=== PATIENT | female | born 1945 | race Caucasian/White ===

== ENCOUNTER 2020-09-04 11:40 | Observation (INO) | payer MEDICARE ==
[2020-09-04 12:14] LABS: #Monocytes 0.8 10x3/uL (0.0-1.1); #Neutrophils 3.6 10x3/uL (1.5-8.4); %Basophils 0.7 % (0.0-2.0); %Eosinophils 0.7 % (0.0-6.0); %Lymphocytes 23.4 % (18.0-47.0); %Monocytes 12.9 % (0.0-10.0); Hemoglobin 12.2 g/dL (12.0-15.5); Mean Corpuscular HGB CONC 33.2 g/dL (32.0-36.0); Mean Corpuscular Volume 93.4 fl (81.6-98.3); Mean Platelet Volume 9.4 fl (7.4-10.4); Platelet Count 158 10x3/uL (150-450); RBC Distribution Width 13.6 % (11.5-14.5); Red Blood Cell (RBC) Count 3.94 10x6/uL (3.90-5.03); White Blood Cell (WBC) Count 5.8 10x3/uL (3.5-10.5)
[2020-09-04] MEDS ORDERED: Albuterol Sulfate 2.5 mg/3 ml Neb ONE (12:23)
[2020-09-04 12:32] LABS: ALT (SGPT) 9 U/L (8-55); AST (SGOT) 17 U/L (5-34); Alkaline Phosphatase 85 U/L (40-110); Anion Gap 15 mmol/L (10-20); BUN (Urea Nitrogen) 13 mg/dL (9.8-20.1); Bilirubin, Total 1.1 mg/dL (0.2-1.2); Calc. Creatinine Clearance 0 mL/min (70-130); Calcium 8.6 mg/dL (7.8-10.44); Carbon Dioxide 18 mmol/L (23-31); Chloride 107 mmol/L (98-107); Globulin 2.7 g/dL (2.4-3.5); Glucose 119 mg/dL (83-110); Potassium 3.8 mmol/L (3.5-5.1); Protein, Total 6.7 g/dL (5.8-8.1); Sodium 136 mmol/L (136-145)
[2020-09-04] MEDS ORDERED: Aspirin Chewable 81 MG TAB ONE (14:15)
[2020-09-04] MEDS ORDERED: predniSONE 20 MG TAB ONE (14:16)
[2020-09-04] MEDS ORDERED: Loratadine 10 MG TAB PO PRN (15:24)
[2020-09-04] MEDS ORDERED: Ondansetron PF 4 MG/2 ML Vial IVP PRN (15:26)
[2020-09-04] MEDS ORDERED: Acetaminophen 325 MG TAB PO PRN (15:26)
[2020-09-04 15:30] LABS: Troponin I 0.018 ng/mL (< 0.028)
[2020-09-04] MEDS ORDERED: Ipratropium Bromide 2.5 ml Neb NEB PRN (15:30)
[2020-09-04 16:15] VITALS: BMI 25.4
[2020-09-04] MEDS ORDERED: Icosapent Ethyl [Vascepa] 1 GM Capsule PO SCH (17:00)
[2020-09-04] MEDS: Carvedilol 3.125 MG TAB PO SCH (17:10)
[2020-09-04] MEDS: methylPREDNISolone Sod Succ 40 MG VIAL IVP SCH ×2 (17:10→23:44)
[2020-09-04 18:39] LABS: Troponin I 0.018 ng/mL (< 0.028)
[2020-09-04] MEDS ORDERED: Ezetimibe 10 MG TAB PO SCH (21:00)
[2020-09-04] MEDS ORDERED: Rivaroxaban 10 MG TAB PO SCH (21:00)
[2020-09-04] MEDS ORDERED: Atorvastatin Calcium 40 MG TAB PO SCH (21:00)
[2020-09-05] MEDS: methylPREDNISolone Sod Succ 40 MG VIAL IVP SCH ×2 (05:28→13:45)
[2020-09-05 05:47] LABS: Anion Gap 14 mmol/L (10-20); BUN (Urea Nitrogen) 16 mg/dL (9.8-20.1); Calc. Creatinine Clearance 54 mL/min (70-130); Calcium 8.8 mg/dL (7.8-10.44); Carbon Dioxide 19 mmol/L (23-31); Chloride 111 mmol/L (98-107); Glucose 153 mg/dL (83-110); Potassium 3.6 mmol/L (3.5-5.1); Sodium 140 mmol/L (136-145)
[2020-09-05 05:54] LABS: #Monocytes 0.1 10x3/uL (0.0-1.1); #Neutrophils 1.9 10x3/uL (1.5-8.4); %Basophils 0.4 % (0.0-2.0); %Lymphocytes 29.9 % (18.0-47.0); %Monocytes 2.8 % (0.0-10.0); %Neutrophils 66.2 % (40.0-75.0); Hemoglobin 12.5 g/dL (12.0-15.5); Mean Corpuscular HGB CONC 32.5 g/dL (32.0-36.0); Mean Corpuscular Hemoglobin 30.8 pg (27.0-33.0); Mean Corpuscular Volume 94.8 fl (81.6-98.3); Mean Platelet Volume 9.5 fl (7.4-10.4); Platelet Count 144 10x3/uL (150-450); RBC Distribution Width 13.3 % (11.5-14.5); Red Blood Cell (RBC) Count 4.06 10x6/uL (3.90-5.03); White Blood Cell (WBC) Count 2.8 10x3/uL (3.5-10.5)
[2020-09-05] MEDS ORDERED: Levothyroxine Sodium 100 MCG TAB PO SCH (06:00)
[2020-09-05] MEDS: Carvedilol 3.125 MG TAB PO SCH (08:51)
[2020-09-05] MEDS ORDERED: DULoxetine 30 MG CAP PO SCH (09:00)
[2020-09-05] MEDS ORDERED: Torsemide 20 MG TAB PO SCH (09:00)
[2020-09-05] MEDS ORDERED: Multivitamin W/ Minerals 1 TAB PO SCH (09:00)
[2020-09-05] MEDS ORDERED: Aspirin 81 mg Enteric Coated Tablet PO SCH (09:00)
[2020-09-05] MEDS ORDERED: Cholecalciferol 1,000 UNITS (25 MCG) TAB PO SCH (09:00)
[2020-09-05] MEDS ORDERED: Digoxin 0.125 MG TAB PO SCH (09:00)
[2020-09-05 12:58] VITALS: BP 123/85; TEMP 97.4
== END 2020-09-05 16:15 | disposition home or self-care (01) ==
LOC: CSHERS 11:40 → CSHTELE 15:30
PROVIDERS: ADMIT Internal Medicine; ATTEND Internal Medicine
DX: J44.1 Chronic obstructive pulmonary disease with (acute) exacerbation (principal); J96.01 Acute respiratory failure with hypoxia; E78.5 Hyperlipidemia, unspecified; E03.9 Hypothyroidism, unspecified; Z79.899 Other long term (current) drug therapy; Z79.82 Long term (current) use of aspirin; F41.8 Other specified anxiety disorders; I48.91 Unspecified atrial fibrillation; Z95.1 Presence of aortocoronary bypass graft; Z95.5 Presence of coronary angioplasty implant and graft; Z87.891 Personal history of nicotine dependence; Z79.01 Long term (current) use of anticoagulants
CPT/HCPCS: 71046; 80048; 80053; 84484 ×2; 85025 ×2; 93005; 94640 ×3; 94760 ×2; 96374; 96376 ×2; 99285; G0378 ×3; 36415; J2920; J3490; J7512; J7611; J7620

== ENCOUNTER 2021-04-12 05:26 | Emergency (ER) | payer MEDICARE ==
[2021-04-12 07:13] LABS: #Basophils 0.1 10x3/uL (0.0-0.2); #Eosinphils 0.2 10x3/uL (0.0-0.5); #Monocytes 0.7 10x3/uL (0.0-1.1); #Neutrophils 5.2 10x3/uL (1.5-8.4); %Basophils 0.6 % (0.0-2.0); %Eosinophils 2.5 % (0.0-6.0); %Lymphocytes 22.8 % (18.0-47.0); %Monocytes 8.9 % (0.0-10.0); %Neutrophils 64.8 % (40.0-75.0); Hemoglobin 13.2 g/dL (12.0-15.5); Mean Corpuscular HGB CONC 33.2 g/dL (32.0-36.0); Mean Corpuscular Hemoglobin 30.9 pg (27.0-33.0); Mean Platelet Volume 9.1 fl (7.4-10.4); Platelet Count 164 10x3/uL (150-450); RBC Distribution Width 13.7 % (11.5-14.5); Red Blood Cell (RBC) Count 4.27 10x6/uL (3.90-5.03)
[2021-04-12 07:28] LABS: ALT (SGPT) 11 U/L (8-55); AST (SGOT) 13 U/L (5-34); Albumin 4.3 g/dL (3.4-4.8); Alkaline Phosphatase 69 U/L (40-110); Anion Gap 13 mmol/L (10-20); BUN (Urea Nitrogen) 17 mg/dL (9.8-20.1); Bilirubin, Total 0.7 mg/dL (0.2-1.2); Calc. Creatinine Clearance 0 mL/min (70-130); Calcium 9.4 mg/dL (7.8-10.44); Carbon Dioxide 24 mmol/L (23-31); Chloride 108 mmol/L (98-107); Globulin 3.3 g/dL (2.4-3.5); Glucose 103 mg/dL (83-110); Potassium 3.9 mmol/L (3.5-5.1); Protein, Total 7.6 g/dL (5.8-8.1); Sodium 141 mmol/L (136-145)
[2021-04-12 07:29] LABS: INR-International Normal Ratio 1.5; Prothrombin Time 15.9 sec (9.5-12.1)
== END 2021-04-12 07:45 | disposition home or self-care (01) ==
LOC: CSHERS 05:26
DX: S00.512A Abrasion of oral cavity, initial encounter (principal); I25.2 Old myocardial infarction; I11.0 Hypertensive heart disease with heart failure; I50.9 Heart failure, unspecified; E78.5 Hyperlipidemia, unspecified; E03.9 Hypothyroidism, unspecified; Z87.891 Personal history of nicotine dependence; Z79.82 Long term (current) use of aspirin; Z79.899 Other long term (current) drug therapy
CPT/HCPCS: 71045; 80053; 85025; 85610